=== PATIENT | female | born 1955 | race Caucasian/White ===

== ENCOUNTER 2022-08-11 15:30 | Inpatient (IN) ==
[2022-08-11] MEDS ORDERED: IOPAMIDOL 100 ML BOTTLE IV ONE (15:31)
[2022-08-11] MEDS ORDERED: 0.9 % SODIUM CHLORIDE 500 ML IV ONE ×3 (15:38→17:29)
--- NOTE | 2022-08-11 15:38 | Emergency Department Note ---
HPI General Chief complaint: Shortness of Breath/Dyspnea Stated complaint: SOB Time Seen by Provider: 08/11/22 15:37 Source: patient Mode of arrival: ambulatory Limitations: no limitations History of Present Illness HPI Narrative: Narrative: Patient is a 66-year-old female with a history of COPD who presents to the emergency department due to chest pain and shortness of breath. She describes the pain as pressure-like, in the center of her chest, and without palliative or provocative factors. She has not taken anything for the pain, but did use her albuterol inhaler and nebulized breathing treatments without any significant relief of her shortness of breath. She does endorse chills, runny nose, and sore throat. She denies any other symptoms at this time. Related Data Home Medications Medication Instructions Recorded Confirmed albuterol sulfate 90 mcg/actuation 2 puff INH Q4-6HP PRN Wheezing 12/25/15 08/11/22 aerosol inhaler (Ventolin HFA) alprazolam 0.5 mg tablet 0.5 mg PO BIDP PRN Anxiety 12/25/15 08/11/22 cyclobenzaprine 10 mg tablet 10 mg PO TIDP PRN Pain 12/25/15 08/11/22 montelukast 10 mg tablet 10 mg PO DAILY 12/25/15 08/11/22 (Singulair) albuterol sulfate 2.5 mg/3 mL 2.5 mg continuous nebulization 08/11/22 08/11/22 (0.083 %) solution for nebulization Q4-6HP PRN Wheezing benzonatate 100 mg capsule 100 mg PO TIDP PRN Congestion 08/11/22 08/11/22 fluticasone fur. 100 mcg-umeclid 1 inh inhalation QDAY 08/11/22 08/11/22 62.5 mcg-vilant 25 mcg inhalat.powder (Trelegy Ellipta) fluticasone furoate 200 1 inh inhalation QDAY 08/11/22 08/11/22 mcg/actuation blister powder for inhalation (Arnuity Ellipta) guaifenesin 1,200 mg tablet, 1,200 mg PO BID 08/11/22 08/11/22 extended release 12 hr (Mucinex) ipratropium bromide 0.02 % 0.5 mg continuous nebulization 08/11/22 08/11/22 solution for inhalation Q6-8HP PRN Wheezing levothyroxine 112 mcg tablet 112 mcg PO QDAY 08/11/22 08/11/22 roflumilast 500 mcg tablet 500 mcg PO QAM 08/11/22 08/11/22 (Daliresp) sertraline 100 mg tablet 100 mg PO QDAY 08/11/22 08/11/22 simvastatin 20 mg tablet 20 mg PO QDAY 08/11/22 08/11/22 tizanidine 2 mg tablet 2 mg PO Q8H PRN Spasms 08/11/22 08/11/22 triamcinolone acetonide 0.1 % 1 applic topical PRN PRN Allergic 08/11/22 08/11/22 topical cream Symptoms Previous Rx's Medication Instructions Recorded ipratropium bromide 0.02 % 2.5 ml inhalation Q6H PRN 08/13/22 solution for inhalation shortness of breath or wheezing #150 mL levalbuterol HCl 1.25 mg/3 mL 1.25 mg (3 mL) inhalation Q6H PRN 08/13/22 solution for nebulization (Xopenex) shortness of breath or wheezing #90 mL prednisone 10 mg tablet 40 mg PO QDAY #1 tab 08/13/22 benzonatate 200 mg capsule 200 mg PO TID PRN cough #20 caps 08/14/22 cefdinir 300 mg capsule 300 mg PO BID #5 caps 08/14/22 cefpodoxime 200 mg tablet 200 mg PO BID #5 tabs 08/15/22 Allergies Allergy/AdvReac Type Severity Reaction Status Date / Time aspirin Allergy Severe short of Verified 08/11/22 15:34 breath ibuprofen Allergy Severe short of Verified 08/11/22 15:34 breath Sulfa (Sulfonamide Allergy Severe short of Verified 08/11/22 15:34 Antibiotics) breath Review of Systems ROS ROS Narrative: Narrative: Constitutional: Reports chills; Denies fever or weakness Eyes: Denies eye pain or vision change ENT ED: Reports throat pain and rhinorrhea Cardiovascular: Reports chest pain; Denies dyspnea on exertion, orthopnea or edema Respiratory: Reports shortness of breath; Denies cough Gastrointestinal: Denies abdominal pain, nausea, vomiting, diarrhea, constipation, hematochezia or melena Musculoskeletal: Denies back pain or myalgia Integumentary: Denies rash or lesions Neurological: Denies headache, weakness, numbness or dizziness PFSH Narrative Patient History Narrative: Narrative: Medical/Surgical/Family History All Active Problems (Updated 08/19/22 @ 08:26 by Rashad Caceres MD) Diverticulitis (Acute) Urticaria (Acute) Pneumonia (Acute) Medical History (Updated 08/19/22 @ 08:26 by Rashad Caceres MD) Diverticulitis Urticaria Exam Narrative Narrative: Narrative: General Limitations: no limitations General appearance: Present alert and in no apparent distress; Absent anxious, appears intoxicated or sleepy Head Head: Present atraumatic and normocephalic Eye Eye: Present EOMI; Absent scleral icterus or nystagmus ENT ENT: Present mucous membranes moist and nasal congestion Neck Neck: Present full ROM and trachea midline Chest Chest: Present normal inspection and symmetric chest wall rise Respiratory Respiratory: Present normal lung sounds bilaterally; Absent respiratory distress, rales/crackles, wheezes, stridor or accessory muscle use Cardiovascular Cardiovascular: Present regular rate, normal rhythm and normal heart sounds Adbominal Abdominal: Present soft; Absent distention Extremities Extremities: Present normal inspection and full ROM; Absent tenderness, pedal edema or pretibial edema Back Back: Present normal inspection and full ROM; Absent tenderness Neurological Neurological: Present alert and oriented X3 Psychiatric Psychiatric: Present normal affect and normal mood Skin Skin: Present warm (WNL), dry and normal color Course Vital Signs Vital signs: Vital Signs Temperature 98.5 F 08/11/22 15:32 Pulse Rate 120 H 08/11/22 15:32 Respiratory Rate 26 H 08/11/22 15:32 Blood Pressure 106/69 08/11/22 15:32 Pulse Oximetry (%) 95 08/11/22 15:32 Oxygen Delivery Method Room Air 08/11/22 15:32 Temperature 98.4 F 08/14/22 14:29 Pulse Rate 112 H 08/14/22 14:29 Respiratory Rate 20 08/14/22 14:29 Blood Pressure 99/79 08/14/22 14:29 Pulse Oximetry (%) 94 08/14/22 14:29 Oxygen Delivery Method Room Air 08/14/22 14:29 MDM MDM Narrative Medical decision making narrative: Narrative: Patient is a 66-year-old female with a history of COPD who presents to the emergency department due to chest pain and shortness of breath. Differential diagnoses include pneumonia, COPD exacerbation, covid, influenza, other viral infection, and PE. CT PE demonstrates pneumonia. She has received antibiotics. She has received fluid without significant improvement in heart rate. She received duoneb treatments with some improvement in shortness of breath. Due to concern for sepsis secondary to pneumonia I have spoken to Dr. Asif about admission and he has agreed to see and evaluate patient for admission. Lab Data 08/12/22 05:34 08/13/22 05:44 Labs: Lab Results 08/11/22 08/11/22 08/11/22 Range/Units 15:48 15:48 15:48 WBC 7.4 (4.5-11.0) K/mcL RBC 3.75 (3.59-5.38) M/mcL Hgb 10.9 L (11.2-15.7) g/dL Hct 34.2 (34.1-44.9) % POC Hct (36-48) MCV 91.2 (80.0-100.0) fL MCH 29.1 (26.0-34.0) pg MCHC 31.9 (31.0-36.0) g/dL RDW 13.7 (11.5-14.5) % Plt Count 277 (140-440) K/mcL MPV 10.3 (8.8-12.5) fL Immature Gran % (Auto) 0.4 (0.0-0.5) % Neut % (Auto) 80.5 H (38.0-78.0) % Lymph % (Auto) 9.6 L (15.5-49.0) % [place] % (Auto) 8.5 (1.0-12.0) % Eos % (Auto) 0.5 (0.0-7.0) % Baso % (Auto) 0.5 (0.0-2.0) % Lymph # (Auto) 0.71 L (1.50-4.80) K/mcL [place] # (Auto) 0.63 (0.10-0.90) K/mcL Eos # (Auto) 0.04 (0.00-0.70) K/mcL Baso # (Auto) 0.04 (0.00-0.30) K/mcL Seg Neutrophils % (38-78) % Band Neutrophils % (0-10) % Lymphocytes % (15-49) % Monocytes % (Manual) (1-12) % Eosinophils % (Manual) (0-7) % Immature Gran # 0.03 (0.00-0.05) K/mcl Absolute Neutrophils 5.93 (1.80-8.00) K/mcL Platelet Estimate (Normal) RBC Morphology (Normal) D-Dimer 1.08 H (0.27-0.50) ug/mL POC VBG pH (7.32-7.42) POC VBG pCO2 at Temp (41-51) POC VBG pO2 (25-40) POC VBG HCO3 (24-28) POC VBG Total CO2 (25-29) POC Venous O2 Sat (40-70) POC VBG Base Excess (-2-2) VBG Lactic Acid (0.5-2) POC Sodium (133-145) POC Potassium (3.3-5.1) POC Chloride (96-108) POC Total CO2 (22-30) POC BUN (6-20) POC Creatinine (0.6-1.2) POC Glucose (70-105) POC WB Ioniz Calcium (1.16-1.32) C-Reactive Protein (0.03-0.80) mg/dL NT-Pro-B Natriuret Pep (<125.0) pg/mL Procalcitonin 0.07 (<0.10) ng/mL 08/11/22 08/11/22 08/11/22 Range/Units 15:48 15:48 15:48 WBC (4.5-11.0) K/mcL RBC (3.59-5.38) M/mcL Hgb (11.2-15.7) g/dL Hct (34.1-44.9) % POC Hct (36-48) MCV (80.0-100.0) fL MCH (26.0-34.0) pg MCHC (31.0-36.0) g/dL RDW (11.5-14.5) % Plt Count (140-440) K/mcL MPV (8.8-12.5) fL Immature Gran % (Auto) (0.0-0.5) % Neut % (Auto) (38.0-78.0) % Lymph % (Auto) (15.5-49.0) % [place] % (Auto) (1.0-12.0) % Eos % (Auto) (0.0-7.0) % Baso % (Auto) (0.0-2.0) % Lymph # (Auto) (1.50-4.80) K/mcL [place] # (Auto) (0.10-0.90) K/mcL Eos # (Auto) (0.00-0.70) K/mcL Baso # (Auto) (0.00-0.30) K/mcL Seg Neutrophils % 87 H (38-78) % Band Neutrophils % 2 (0-10) % Lymphocytes % 5 L (15-49) % Monocytes % (Manual) 5 (1-12) % Eosinophils % (Manual) 1 (0-7) % Immature Gran # (0.00-0.05) K/mcl Absolute Neutrophils (1.80-8.00) K/mcL Platelet Estimate Normal (Normal) RBC Morphology Normal (Normal) D-Dimer (0.27-0.50) ug/mL POC VBG pH (7.32-7.42) POC VBG pCO2 at Temp (41-51) POC VBG pO2 (25-40) POC VBG HCO3 (24-28) POC VBG Total CO2 (25-29) POC Venous O2 Sat (40-70) POC VBG Base Excess (-2-2) VBG Lactic Acid (0.5-2) POC Sodium (133-145) POC Potassium (3.3-5.1) POC Chloride (96-108) POC Total CO2 (22-30) POC BUN (6-20) POC Creatinine (0.6-1.2) POC Glucose (70-105) POC WB Ioniz Calcium (1.16-1.32) C-Reactive Protein 2.40 H (0.03-0.80) mg/dL NT-Pro-B Natriuret Pep 6314.0 H (<125.0) pg/mL Procalcitonin (<0.10) ng/mL 08/11/22 08/11/22 Range/Units 15:56 16:00 WBC (4.5-11.0) K/mcL RBC (3.59-5.38) M/mcL Hgb (11.2-15.7) g/dL Hct (34.1-44.9) % POC Hct 34.0 L (36-48) MCV (80.0-100.0) fL MCH (26.0-34.0) pg MCHC (31.0-36.0) g/dL RDW (11.5-14.5) % Plt Count (140-440) K/mcL MPV (8.8-12.5) fL Immature Gran % (Auto) (0.0-0.5) % Neut % (Auto) (38.0-78.0) % Lymph % (Auto) (15.5-49.0) % Carter % (Auto) (1.0-12.0) % Eos % (Auto) (0.0-7.0) % Baso % (Auto) (0.0-2.0) % Lymph # (Auto) (1.50-4.80) K/mcL [place] # (Auto) (0.10-0.90) K/mcL Eos # (Auto) (0.00-0.70) K/mcL Baso # (Auto) (0.00-0.30) K/mcL Seg Neutrophils % (38-78) % Band Neutrophils % (0-10) % Lymphocytes % (15-49) % Monocytes % (Manual) (1-12) % Eosinophils % (Manual) (0-7) % Immature Gran # (0.00-0.05) K/mcl Absolute Neutrophils (1.80-8.00) K/mcL Platelet Estimate (Normal) RBC Morphology (Normal) D-Dimer (0.27-0.50) ug/mL POC VBG pH 7.46 H (7.32-7.42) POC VBG pCO2 at Temp 27.5 L (41-51) POC VBG pO2 61 H (25-40) POC VBG HCO3 19.8 L (24-28) POC VBG Total CO2 21.0 L (25-29) POC Venous O2 Sat 93.0 H (40-70) POC VBG Base Excess -4.0 L (-2-2) VBG Lactic Acid 1.7 (0.5-2) POC Sodium 136 (133-145) POC Potassium 3.8 (3.3-5.1) POC Chloride 103 (96-108) POC Total CO2 21.0 L (22-30) POC BUN 6 (6-20) POC Creatinine 0.7 (0.6-1.2) POC Glucose 115 H (70-105) POC WB Ioniz Calcium 1.12 L (1.16-1.32) C-Reactive Protein (0.03-0.80) mg/dL NT-Pro-B Natriuret Pep (<125.0) pg/mL Procalcitonin (<0.10) ng/mL EKG Data EKG #1: EKG attestation: Yes I reviewed and interpreted this EKG. EKG results narrative: Sinus tachycardia with a rate of 115, left axis deviation, AR 157, QRS of 118, QTc of 475, T wave inversions in leads I and aVL, T wave flattening in leads V5 and V6, and absence of ST elevation or depression. Discharge Plan Patient/Caregiver Discharge Instructions Pt seen by HOUSE SUPERVISOR/PA only: No Clinical Impression: Pneumonia Patient Disposition: Xfer As Inpt ([facility]) Condition: Fair Discharge Date/Time: 08/11/22 21:18
[2022-08-11 16:03] LABS: POC Calcium, Ionized 1.12 (1.16-1.32); POC Creatinine 0.7 (0.6-1.2); POC Potassium 3.8 (3.3-5.1)
--- NOTE | 2022-08-11 16:28 | XRay Report ---
INDICATION: SOB TECHNIQUE: AP portable upright chest x-ray COMPARISON: Previous examinations dated 03/31/2020, 07/12/2014 FINDINGS: Lungs:Mild linear density at both lung bases most consistent with atelectasis. No parenchymal consolidation. No evidence for pneumonia Heart, vascular:Heart size appears enlarged. Cardiomegaly was not demonstrated previously. This appearance on present examination may be due to magnification and AP positioning. Vascularity is within normal limits. No evidence for congestive heart Mediastinum, lorenzo:No mediastinal widening. No hilar mass Pleura:No pleural fluid. No pleural-based mass or calcification Skeletal:Negative. IMPRESSION: 1. Bibasilar density consistent with atelectasis 2. No other abnormality Interpreted and Authenticated by: Ajith Bernal 08/11/22
[2022-08-11] MEDS ORDERED: IPRATROPIUM/ALBUTEROL 3 ML AMPUL.NEB NEB ONE (16:33)
[2022-08-11 16:49] LABS: Basophils # (Auto) 0.04 K/mcL (0.00-0.30); Basophils % (Auto) 0.5 % (0.0-2.0); Eosinophils # (Auto) 0.04 K/mcL (0.00-0.70); Eosinophils % (Auto) 0.5 % (0.0-7.0); Hematocrit 34.2 % (34.1-44.9); Hemoglobin 10.9 g/dL (11.2-15.7); Lymphocytes # (Auto) 0.71 K/mcL (1.50-4.80); Lymphocytes % (Auto) 9.6 % (15.5-49.0); Mean Cell Volume 91.2 fL (80.0-100.0); Mean Corpuscular HGB Conc 31.9 g/dL (31.0-36.0); Mean Platelet Volume 10.3 fL (8.8-12.5); Monocytes # (Auto) 0.63 K/mcL (0.10-0.90); Monocytes % (Auto) 8.5 % (1.0-12.0); Neutrophils % (Auto) 80.5 % (38.0-78.0); Platelet Count 277 K/mcL (140-440); RBC 3.75 M/mcL (3.59-5.38); Red Cell Distribution Width 13.7 % (11.5-14.5); WBC 7.4 K/mcL (4.5-11.0)
[2022-08-11] MEDS ORDERED: PIPERACILLIN SODIUM/TAZOBACTAM 3.375 GM in DEXTROSE 5% IN WATER 50 ML IV ONE (17:27)
[2022-08-11] MEDS ORDERED: ACETAMINOPHEN 325 MG TABLET PO ONE (17:27)
[2022-08-11] MEDS ORDERED: VANCOMYCIN 1,000 MG in 0.9 % SODIUM CHLORIDE 250 ML IV ONE (17:27)
[2022-08-11] MEDS ORDERED: ALBUTEROL SULFATE 5 MG/ML NEB SOLUTION BOTTLE NEB ONE (17:34)
[2022-08-11] MEDS ORDERED: ALBUTEROL SULFATE 2.5 MG/3 ML NEBULIZER NEB ONE (17:36)
--- NOTE | 2022-08-11 18:07 | Cat Scan Report ---
INDICATION: Chest pain, SOB, tachycardia, elevated D dimer COMPARISON: Previous chest x-ray dated 08/11/2022 TECHNIQUE: Axial images obtained through the chest. 70ml Isovue 370 injected intravenously, and scanning was performed during pulmonary arterial phase. Sagittally and coronally reformatted images were obtained. MIP reformatted images. FINDINGS: Lungs:Suboptimal evaluation due to inability to suspend respiration. There are areas of groundglass infiltrate in the left upper lobe. Findings are consistent with pneumonia. 3-[address] follow-up recommended. There is centrilobular emphysema consistent with smoking history. There is also bronchial wall thickening consistent with chronic bronchitis. Mediastinum, vascular:Main pulmonary artery, right pulmonary artery, left pulmonary artery are negative. No intraluminal filling defects. No lobar, segmental, or subsegmental emboli. Thoracic aorta is negative. No aneurysmal dilatation No pathologic mediastinal adenopathy. There is mild hilar adenopathy. This is nonspecific. Heart:There is mild cardiomegaly. There is no reflux of contrast material into the inferior vena cava or hepatic veins. No evidence for right heart strain Pleura:No significant pleural effusion. No pleural mass or calcification Axilla, supraclavicular regions, chest wall:No pathologic axillary or supraclavicular adenopathy. Musculoskeletal:Negative thoracic spine. No compression fracture. No lytic lesion. No rib or sternal lesions Upper Abdomen:Negative IMPRESSION: 1. Negative pulmonary CTA 2. Centrilobular emphysema. Bronchial wall thickening consistent with chronic bronchitis 3. Groundglass infiltrates in the left upper lobe consistent with pneumonia. 3-[address] follow-up recommended 4. Cardiomegaly. The exam was performed using radiation dose optimization techniques including, but not limited to, automated exposure control, adjustment of the mA and/or kV according to patient size and use of iterative reconstruction technique. Interpreted and Authenticated by: Ajith Bernal 08/11/22
[2022-08-11] MEDS ORDERED: methylPREDNISolone SOD SUCC 125 MG/2 ML VIAL IV ONE (19:11)
--- NOTE | 2022-08-11 19:15 | Internal Med History&Physical ---
HPI History of Present Illness Patient information: Note initiated : 08/11/22 at 7:08 pm Service Date, if different from initiated Date: [] Patient: Venessa Hercules a 66 y/o F admitted on for Shortness of breath. Chief Complaint: [] History of present illness: Ms. Hercules is a 66 year old F Presents today with shortness of breath and productive cough. And feeling wheezy. Patient states about a month or so ago she was little more short of breath and saw her primary care nurse practitioner Dr. Beauchamp. She started to feel little better but then when she went down to [place] to visit family she seemed to be getting worse again. And then on the way back she continued to worsen. She was around a sister who had a cold as well. It was so severe today that she came into the hospital. Primarily shortness of breath is what brought her in. She got back from [place] yesterday. As stated before she does feel really wheezy. She did have some nausea. She does have a cough productive of thick white sputum with some yellowish hue to it. In the ED she was febrile tachypneic and tachycardic. Lactate was okay. CT of the chest showed left upper lobe pneumonia. Bronchitis. No PE. Patient was given DuoNeb treatments and eventually can continue his heart treatment with some improvement during the course but then she continues to feel short of breath. Patient is started on antibiotics. Patient has not had the flu or the COVID-vaccine. Review of Systems: Pertinent positives as above. Denies headache//chills//vomiting/chest or abdominal pain/diarrhea. Remaining 10 point review of system reviewed negative PHYSICAL EXAM General: Alert, Awake, No acute Distress Eyes/N/T: EOMI, no scleral icterus, PERRL, dry MM Head/Neck: neck supple, full ROM, normocephalic atraumatic CV: Tachycardic, No murmurs, normal s1/s2 Pulm: Wheezing b/l, long expiratory phase, mild respiratory distress Abd: soft, nontender, +BS x4 Ext: no clubbing/cyanosis/edema, nontender Neuro: Alert, no focal deficits, moves all extremities, CN 2-12 grossly intact, sensations intact b/l upper/lower Psychiatric: Skin: warm/dry, normal color PFSH PFSH All Active Problems (Updated 09/26/16 @ 14:29 by [employer]) Diverticulitis (Acute) Urticaria (Acute) Medical History (Updated 09/26/16 @ 14:29 by [employer]) Diverticulitis Urticaria MEDS/ALLERGIES Home Medications and Allergies Home Medications Medication Instructions Recorded Confirmed Type albuterol sulfate 90 mcg/actuation 2 puff INH Q4-6HP PRN Wheezing 12/25/15 12/25/15 History aerosol inhaler (Ventolin HFA) alprazolam 0.5 mg tablet 0.5 mg PO BIDP PRN Anxiety 12/25/15 12/25/15 History budesonide 180 mcg/actuation 180 mcg IH 12/25/15 History breath activated powder inhaler (Pulmicort Flexhaler) ciprofloxacin HCl 500 mg tablet 500 mg PO BID ##20 12/25/15 Rx cyclobenzaprine 10 mg tablet 10 mg PO TIDP PRN Pain 12/25/15 12/25/15 History fluticasone 500 mcg-salmeterol 50 1 puff INH BID 12/25/15 12/25/15 History mcg/dose blistr powdr for inhalation (Advair Diskus) levothyroxine 125 mcg tablet 125 mcg PO DAILY 12/25/15 12/25/15 History metronidazole 500 mg tablet 500 mg PO TID ##30 12/25/15 Rx (Flagyl) montelukast 10 mg tablet 10 mg PO DAILY 12/25/15 12/25/15 History (Singulair) sertraline 25 mg tablet 25 mg PO DAILY 12/25/15 12/25/15 History Allergies Allergy/AdvReac Type Severity Reaction Status Date / Time aspirin Allergy Severe short of Verified 08/11/22 15:34 breath ibuprofen Allergy Severe short of Verified 08/11/22 15:34 breath Sulfa (Sulfonamide Allergy Severe short of Verified 08/11/22 15:34 Antibiotics) breath EXAM Constitutional Vitals: Temp Pulse Resp BP Pulse Ox O2 Del Method 100.9 F H 114 H 16 119/75 99 Room Air 08/11/22 17:45 08/11/22 18:15 08/11/22 18:15 08/11/22 17:34 08/11/22 18:15 08/11/22 15:32 DATA Data Completed and Pending Labs: Labs from last 24 hours 08/11/22 08/11/22 08/11/22 16:00 15:56 15:48 WBC RBC Hgb Hct POC Hct 34.0 L MCV MCH MCHC RDW Plt Count MPV Immature Gran % (Auto) Neut % (Auto) Lymph % (Auto) [place] % (Auto) Eos % (Auto) Baso % (Auto) Lymph # (Auto) [place] # (Auto) Eos # (Auto) Baso # (Auto) Immature Gran # Absolute Neutrophils D-Dimer POC VBG pH 7.46 H POC VBG pCO2 at Temp 27.5 L POC VBG pO2 61 H POC VBG HCO3 19.8 L POC VBG Total CO2 21.0 L POC Venous O2 Sat 93.0 H POC VBG Base Excess -4.0 L VBG Lactic Acid 1.7 POC Sodium 136 POC Potassium 3.8 POC Chloride 103 POC Total CO2 21.0 L POC BUN 6 POC Creatinine 0.7 POC Glucose 115 H POC WB Ioniz Calcium 1.12 L NT-Pro-B Natriuret Pep 6314.0 H Procalcitonin 08/11/22 08/11/22 08/11/22 15:48 15:48 15:48 WBC 7.4 RBC 3.75 Hgb 10.9 L Hct 34.2 POC Hct MCV 91.2 MCH 29.1 MCHC 31.9 RDW 13.7 Plt Count 277 MPV 10.3 Immature Gran % (Auto) 0.4 Neut % (Auto) 80.5 H Lymph % (Auto) 9.6 L [place] % (Auto) 8.5 Eos % (Auto) 0.5 Baso % (Auto) 0.5 Lymph # (Auto) 0.71 L [place] # (Auto) 0.63 Eos # (Auto) 0.04 Baso # (Auto) 0.04 Immature Gran # 0.03 Absolute Neutrophils 5.93 D-Dimer 1.08 H POC VBG pH POC VBG pCO2 at Temp POC VBG pO2 POC VBG HCO3 POC VBG Total CO2 POC Venous O2 Sat POC VBG Base Excess VBG Lactic Acid POC Sodium POC Potassium POC Chloride POC Total CO2 POC BUN POC Creatinine POC Glucose POC WB Ioniz Calcium NT-Pro-B Natriuret Pep Procalcitonin 0.07 A/P Narrative A/P Narrative: A: *AECOPD(not on home O2): *PNA: viral vs bacterial *Sepsis: -febrile/tachypnea/tachycardia *Depression/anxiety: Continue home medications *Hypothyroidism: * P: -Corticosteroids (wean) -manoj/prn Nebs, RT, budesonide -IS/Acapella -monitor o2, prn oxygen therapy -abx, pending BC/SC -rvp/covid pending -crp - -Home medication reconciliation -PT/OT -ppx: Lovenox Time Spent With Patient Time: Total time spent is greater than 50% in coordination of care (as documented) at patient's floor/unit and/or counseling patient: Initial: Total time with patient: 55 - 74 minutes
[2022-08-11] MEDS ORDERED: SENNOSIDES 1 TABLET PO PRN (19:16)
[2022-08-11] MEDS ORDERED: POLYETHYLENE GLYCOL 3350 17 GM PACKET PO PRN (19:16)
[2022-08-11] MEDS ORDERED: ONDANSETRON 4 MG/2 ML VIAL IV PRN (19:16)
[2022-08-11] MEDS ORDERED: MAGNESIUM SULFATE 2 GM/50 ML BAG IV PRN (19:16)
[2022-08-11] MEDS ORDERED: POTASSIUM CHLORIDE 40 MEQ in DEXTROSE 5% IN WATER 500 ML IV PRN (19:16)
[2022-08-11] MEDS ORDERED: POTASSIUM CHLORIDE 20 MEQ TABLET PO PRN ×2 (19:16)
[2022-08-11] MEDS ORDERED: cefTRIAXone 1 GM in DEXTROSE 5% IN WATER 50 ML IV SCH (19:30)
[2022-08-11] MEDS ORDERED: AZITHROMYCIN 500 MG in DEXTROSE 5% IN WATER 250 ML IV SCH (21:00)
[2022-08-11] MEDS: methylPREDNISolone SOD SUCC 125 MG/2 ML VIAL IV SCH (21:24)
[2022-08-11 21:25] LABS: Band Neutrophils % 2 % (0-10); Eosinophils % (Manual) 1 % (0-7); Lymphocytes % 5 % (15-49); Monocytes % (Manual) 5 % (1-12); Platelet Estimate NORMAL (Normal); RBC Morphology NORMAL (Normal); Segmented Neutrophils % 87 % (38-78)
[2022-08-11] MEDS: cefTRIAXone 1 GM VIAL IV SCH (21:45)
[2022-08-11] MEDS: BUDESONIDE 0.5 MG/2 ML AMPUL.NEB NEB SCH (21:54)
[2022-08-11] MEDS: 0.9 % SODIUM CHLORIDE 10 ML SYRINGE IV SCH (22:10)
[2022-08-11] MEDS: DOCUSATE SODIUM 100 MG CAPSULE PO SCH ×2 (22:22→22:25)
[2022-08-12] MEDS: IPRATROPIUM/ALBUTEROL 3 ML AMPUL.NEB NEB SCH ×4 (00:39→18:01)
[2022-08-12] MEDS: ACETAMINOPHEN 325 MG TABLET PO PRN ×2 (04:04→09:30)
[2022-08-12] MEDS: IPRATROPIUM/ALBUTEROL 3 ML AMPUL.NEB NEB PRN ×2 (04:05→22:31)
[2022-08-12] MEDS: methylPREDNISolone SOD SUCC 125 MG/2 ML VIAL IV SCH ×3 (05:43→22:19)
[2022-08-12] MEDS: 0.9 % SODIUM CHLORIDE 10 ML SYRINGE IV SCH ×3 (05:44→22:19)
[2022-08-12 06:59] LABS: Basophils # (Auto) 0.01 K/mcL (0.00-0.30); Basophils % (Auto) 0.1 % (0.0-2.0); Eosinophils # (Auto) 0 K/mcL (0.00-0.70); Eosinophils % (Auto) 0 % (0.0-7.0); Hematocrit 33.5 % (34.1-44.9); Hemoglobin 10.3 g/dL (11.2-15.7); Lymphocytes # (Auto) 0.54 K/mcL (1.50-4.80); Lymphocytes % (Auto) 7.5 % (15.5-49.0); Mean Cell Volume 95.4 fL (80.0-100.0); Mean Corpuscular HGB Conc 30.7 g/dL (31.0-36.0); Mean Platelet Volume 10.5 fL (8.8-12.5); Monocytes # (Auto) 0.26 K/mcL (0.10-0.90); Monocytes % (Auto) 3.6 % (1.0-12.0); Neutrophils % (Auto) 88.1 % (38.0-78.0); Platelet Count 247 K/mcL (140-440); RBC 3.51 M/mcL (3.59-5.38); Red Cell Distribution Width 13.9 % (11.5-14.5); WBC 7.2 K/mcL (4.5-11.0)
[2022-08-12] MEDS ORDERED: ALPRAZolam 0.5 MG TABLET PO PRN (07:38)
--- NOTE | 2022-08-12 07:40 | Internal Med Progress Note ---
SUBJECTIVE Subjective Patient information: Note initiated : 08/12/22 at 7:34 am Service Date, if different from initiated Date: [] Patient: Venessa Hercules a 66 y/o F admitted on 08/11/22 for Shortness of breath. Chief Complaint: [] Interval history: History of present illness: Ms. Hercules is a 66 year old F Presents today with shortness of breath and productive cough. And feeling wheezy. Patient states about a month or so ago she was little more short of breath and saw her advice nurse Dr. Beauchamp. She started to feel little better but then when she went down to [place] to visit family she seemed to be getting worse again. And then on the way back she continued to worsen. She was around a sister who had a cold as well. It was so severe today that she came into the hospital. Primarily shortness of breath is what brought her in. She got back from [place] yesterday. As stated before she does feel really wheezy. She did have some nausea. She does have a cough productive of thick white sputum with some yellowish hue to it. In the ED she was febrile tachypneic and tachycardic. Lactate was okay. CT of the chest showed left upper lobe pneumonia. Bronchitis. No PE. Patient was given DuoNeb treatments and eventually can continue his heart treatment with some improvement during the course but then she continues to feel short of breath. Patient is started on antibiotics. Patient has not had the flu or the COVID-vaccine. 4/3 Feeling a little better. Still quite short of breath with any activity. Coughing. Headache. Review of Systems: Pertinent positives as above. Denies fever/chills/nausea/vomiting/chest or abdominal pain/diarrhea. PHYSICAL EXAM General: Alert, Awake, No acute Distress Eyes/N/T: EOMI, no scleral icterus, Head/Neck: neck supple, full ROM, CV: RRR, No murmurs, Pulm: Wheezing b/l, long expiratory phase, no respiratory distress Abd: soft, nontender, +BS x4 Ext: no clubbing/cyanosis/edema, nontender Neuro: Alert, no focal deficits, moves all extremities, sensations intact b/l upper/lower Psychiatric: Skin: warm/dry, normal color Constitutional Vitals: Vital Signs Temp Pulse Resp BP Pulse Ox O2 Del Method 99.0 F 102 H 22 97/74 91 Room Air 08/12/22 03:13 08/12/22 03:13 08/12/22 03:13 08/12/22 03:13 08/12/22 03:13 08/12/22 03:13 Period Temp Pulse Resp BP Sys/Ledesma Pulse Ox O2 Del Method O2 Flow Rate Last 24 Hr 98.1 F-100.9 F 93-122 15-31 89-119/62-85 91-100 Room Air-Room Air Intake and Output 08/11/22 08/12/22 08/12/22 19:59 03:59 11:59 Intake Total 1800 1000 Output Total 600 Balance 1800 400 Weight 65.771 kg 73.482 kg Intake & Output: Intake & Output 08/11/22 08/12/22 08/12/22 19:59 03:59 11:59 Intake Total 1800 1000 Output Total 600 Balance 1800 400 Weight 65.771 kg 73.482 kg Intake: IV 1800 250 Sodium [place] 0.9% 500 ml @ 1500 Wide Open IV BOLUS ONE Rx#: [id number] Zithromax 500 mg In Dextrose 5% 250 in Water 250 ml @ 250 mls/hr IV Q24H [facility] Rx#:[id number] Zosyn 3.375 gm In Dextrose 5% 50 in Water 50 ml @ 100 mls/hr IV ONCE ONE Rx#:[id number] Vancomycin 1,000 mg In Sodium 250 Ch[place] 0.9% 250 ml @ 250 mls/ hr IV ONCE ONE Rx#:[id number] Oral 750 Output: Void Amount 600 Other: Meal [place], crackers, cheese stick Percent of Meal Consumed 100% Feeding Ability Independent Urine Appearance Clear Urine Color Yellow Urine Odor Normal # Voids 2 # Bowel Movements 1 OBJ DATA Labs 08/12/22 05:34 08/12/22 05:34 Labs: Abnormal Lab Results 08/12/22 08/11/22 08/11/22 05:34 16:00 15:56 RBC 3.51 L Hgb 10.3 L Hct 33.5 L POC Hct 34.0 L MCHC 30.7 L Immature Gran % (Auto) 0.7 H Neut % (Auto) 88.1 H Lymph % (Auto) 7.5 L Lymph # (Auto) 0.54 L Seg Neutrophils % Lymphocytes % D-Dimer POC VBG pH 7.46 H POC VBG pCO2 at Temp 27.5 L POC VBG pO2 61 H POC VBG HCO3 19.8 L POC VBG Total CO2 21.0 L POC Venous O2 Sat 93.0 H POC VBG Base Excess -4.0 L POC Total CO2 21.0 L POC Glucose 115 H POC WB Ioniz Calcium 1.12 L C-Reactive Protein NT-Pro-B Natriuret Pep 08/11/22 08/11/22 08/11/22 15:48 15:48 15:48 RBC Hgb Hct POC Hct MCHC Immature Gran % (Auto) Neut % (Auto) Lymph % (Auto) Lymph # (Auto) Seg Neutrophils % 87 H Lymphocytes % 5 L D-Dimer POC VBG pH POC VBG pCO2 at Temp POC VBG pO2 POC VBG HCO3 POC VBG Total CO2 POC Venous O2 Sat POC VBG Base Excess POC Total CO2 POC Glucose POC WB Ioniz Calcium C-Reactive Protein 2.40 H NT-Pro-B Natriuret Pep 6314.0 H 08/11/22 08/11/22 15:48 15:48 RBC Hgb 10.9 L Hct POC Hct MCHC Immature Gran % (Auto) Neut % (Auto) 80.5 H Lymph % (Auto) 9.6 L Lymph # (Auto) 0.71 L Seg Neutrophils % Lymphocytes % D-Dimer 1.08 H POC VBG pH POC VBG pCO2 at Temp POC VBG pO2 POC VBG HCO3 POC VBG Total CO2 POC Venous O2 Sat POC VBG Base Excess POC Total CO2 POC Glucose POC WB Ioniz Calcium C-Reactive Protein NT-Pro-B Natriuret Pep Meds: Medications Acetaminophen (Acetaminophen 325 Mg Tablet) 650 mg PO Q6HP PRN; Protocol PRN Reason: Per Pain Protocol/Fever > 101 Last Admin: 08/12/22 04:04 Dose: 650 mg Albuterol/Ipratropium (Ipratropium/Albuterol 3 Ml Ampul.Neb) 3 ml NEB Q6HRT [facility]J Last Admin: 08/12/22 00:39 Dose: 3 ml Albuterol/Ipratropium (Ipratropium/Albuterol 3 Ml Ampul.Neb) 3 ml NEB Q4HP PRN PRN Reason: Shortness Of Breath Last Admin: 08/12/22 04:05 Dose: 3 ml Budesonide (Budesonide 0.5 Mg/2 Ml Ampul.Neb) 0.5 mg NEB Q12 COUNT INCLUDES THE [facility] Last Admin: 08/11/22 21:54 Dose: Not Given Ceftriaxone Sodium (Ceftriaxone 1 Gm Vial) 1 gm IV Q24H COUNT INCLUDES THE [facility] Last Admin: 08/11/22 21:45 Dose: 1 gm Docusate Sodium (Docusate Sodium 100 Mg Capsule) 100 mg PO BID COUNT INCLUDES THE [facility] Last Admin: 08/11/22 22:25 Dose: Not Given Enoxaparin Sodium (Enoxaparin 40 Mg/0.4 Ml Syringe) 40 mg SQ DAILY COUNT INCLUDES THE [facility] Potassium [place] 40 meq/ (Dextrose) 520 mls @ 130 mls/hr IV UD PRN PRN Reason: Potassium < 3 Magnesium Sulfate (Magnesium Sulfate) 2 gm in 50 mls @ 50 mls/hr IV UD PRN PRN Reason: Magnesium </= 1.6 Azithromycin 500 mg/ Dextrose 250 mls @ 250 mls/hr IV Q24H COUNT INCLUDES THE [facility]; Protocol Stop: 08/13/22 10:59 Methylprednisolone Sodium Succinate (Methylprednisolone Sod Succ 125 Mg/2 Ml Vial) 62.5 mg IV Q8 COUNT INCLUDES THE [facility] Last Admin: 08/12/22 05:43 Dose: 62.5 mg Ondansetron HCl (Ondansetron 4 Mg/2 Ml Vial) 4 mg IV Q4HP PRN PRN Reason: Nausea And Vomiting Polyethylene Glycol (Polyethylene Glycol 3350 17 Gm Packet) 17 gm PO DAILYP PRN PRN Reason: Constipation Potassium [place] (Potassium [place] 20 Meq Tablet) 40 meq PO UD PRN PRN Reason: Potssium is 3-3.5 Potassium [place] (Potassium [place] 20 Meq Tablet) 40 meq PO UD PRN PRN Reason: Potassium < 3 Senna (Sennosides 1 Tablet) 2 tab PO DAILYP PRN PRN Reason: Constipation Sodium [place] (0.9 % Sodium [place] 10 Ml Syringe) 10 ml IV Q8 COUNT INCLUDES THE [facility] Last Admin: 08/12/22 05:44 Dose: 10 ml A/P Narrative A/P Narrative: A: *AECOPD(not on home O2): *PNA: suspect viral from parainfluenza virus vs bacterial -covid/flu neg *Sepsis: -febrile/tachypnea/tachycardia slowly improving *Metabolic acidosis: *Depression/anxiety: Continue home medications *Hypothyroidism: *Anemia, likely chronic: monitor P: -Corticosteroids (wean) -manoj/prn Nebs, RT, budesonide -IS/Acapella -monitor o2, prn oxygen therapy -abx, pending BC/SC -Follow-up acid-base status, renal fxn -crp -f/u CT 3-6mos for BARRON infiltrates -PT/OT -ppx: Lovenox Time Spent With Patient Time: Total time spent is greater than 50% in coordination of care (as documented) at patient's floor/unit and/or counseling patient: Subsequent: Total time with patient: 35 - 49 minutes QUALITY Stroke Symptom Onset Unknown: No VTE Deep Vein Thrombosis/Pulmonary Embolism Present on Admission: No
[2022-08-12] MEDS: BUDESONIDE 0.5 MG/2 ML AMPUL.NEB NEB SCH ×2 (07:49→18:01)
[2022-08-12] MEDS ORDERED: tiZANidine 4 MG TABLET PO PRN (07:51)
[2022-08-12 08:13] LABS: ALT/SGPT 37 U/L (<40); AST/SGOT 22 U/L (<32); Albumin 3.5 gm/dL (3.2-5.2); Albumin/Globulin Ratio 1.6 (1.0-2.3); Alkaline Phosphatase 88 U/L (39-117); Bilirubin,Direct < 0.2 mg/dL (0-0.3); Bilirubin,Total 0.2 mg/dL (0.1-1.0); Blood Urea Nitrogen 9 mg/dL (8-23); Calcium 8.7 mg/dL (8.6-10.4); Carbon Dioxide 18 mmol/L (22-30); Chloride 103 mmol/L (96-108); Globulin 2.2 gm/dL (2.2-3.7); Glomerular Filtration Rate 96; Glucose 149 mg/dL (70-105); Lactate Dehydrogenase 201 U/L (135-225); Triglycerides 61 mg/dL (<150); Uric Acid 5.7 mg/dL (2.5-8.0)
[2022-08-12] MEDS: SERTRALINE 100 MG TABLET PO SCH (08:25)
[2022-08-12] MEDS: BENZONATATE 100 MG CAPSULE PO PRN (08:25)
[2022-08-12] MEDS: LEVOTHYROXINE SODIUM 112 MCG TABLET PO SCH (08:25)
[2022-08-12] MEDS: DOCUSATE SODIUM 100 MG CAPSULE PO SCH ×3 (08:26→22:20)
[2022-08-12] MEDS: cefTRIAXone 1 GM VIAL IV SCH (08:26)
[2022-08-12] MEDS: ENOXAPARIN 40 MG/0.4 ML SYRINGE SQ SCH (08:26)
--- NOTE | 2022-08-12 09:29 | EKG ---
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 Measurements Intervals [place] Rate: 115 P: 74 WA: 157 QRS: -39 QRSD: 118 T: 124 QT: 344 QTc: 475 Interpretive Statements Sinus tachycardia Incomplete left bundle branch block Electronically Signed On 08-12-2022 9:29:18 PDT by Ajith Saleh M.D. /store/[email or web address]/[id number]
[2022-08-12] MEDS: AZITHROMYCIN 500 MG in DEXTROSE 5% IN WATER 250 ML IV SCH (09:31)
[2022-08-12] MEDS: SODIUM BICARBONATE 650 MG TABLET PO SCH ×2 (09:37→20:38)
[2022-08-12] MEDS: SIMVASTATIN 20 MG TABLET PO SCH (20:38)
[2022-08-12] MEDS: MONTELUKAST 10 MG TABLET PO SCH (20:38)
[2022-08-12] MEDS: CYCLOBENZAPRINE 10 MG TABLET PO PRN (22:18)
[2022-08-13] MEDS: IPRATROPIUM/ALBUTEROL 3 ML AMPUL.NEB NEB SCH ×4 (00:34→18:21)
[2022-08-13] MEDS: BENZONATATE 100 MG CAPSULE PO PRN ×4 (01:12→21:22)
[2022-08-13] MEDS: ACETAMINOPHEN 325 MG TABLET PO PRN ×3 (01:12→21:21)
[2022-08-13] MEDS: methylPREDNISolone SOD SUCC 125 MG/2 ML VIAL IV SCH (05:20)
[2022-08-13] MEDS: 0.9 % SODIUM CHLORIDE 10 ML SYRINGE IV SCH ×3 (05:21→21:21)
--- NOTE | 2022-08-13 07:45 | Internal Med Progress Note ---
SUBJECTIVE Subjective Patient information: Note initiated : 08/13/22 at 7:43 am Service Date, if different from initiated Date: [] Patient: Venessa Hercules a 66 y/o F admitted on 08/11/22 for Shortness of breath. Chief Complaint: [] Interval history: History of present illness: Ms. Hercules is a 66 year old F Presents today with shortness of breath and productive cough. And feeling wheezy. Patient states about a month or so ago she was little more short of breath and saw her drug abuse worker Dr. Beauchamp. She started to feel little better but then when she went down to [place] to visit family she seemed to be getting worse again. And then on the way back she continued to worsen. She was around a sister who had a cold as well. It was so severe today that she came into the hospital. Primarily shortness of breath is what brought her in. She got back from [place] yesterday. As stated before she does feel really wheezy. She did have some nausea. She does have a cough productive of thick white sputum with some yellowish hue to it. In the ED she was febrile tachypneic and tachycardic. Lactate was okay. CT of the chest showed left upper lobe pneumonia. Bronchitis. No PE. Patient was given DuoNeb treatments and eventually can continue his heart treatment with some improvement during the course but then she continues to feel short of breath. Patient is started on antibiotics. Patient has not had the flu or the COVID-vaccine. 4/3 Feeling a little better. Still quite short of breath with any activity. Coughing. Headache. 4/4 Still quite symptomatic with dyspnea. Maintaining oxygenation well. Has productive cough that hurts her chest when she coughs. Metabolic acidosis a little better but still present. CRP mildly improved. Review of Systems: Pertinent positives as above. Denies fever/chills/nausea/vomiting/chest or abdominal pain/diarrhea. PHYSICAL EXAM General: Alert, Awake, No acute Distress Eyes/N/T: EOMI, no scleral icterus, Head/Neck: neck supple, full ROM, CV: RRR, No murmurs, Pulm: mild Wheezing b/l improved, long expiratory phase, no respiratory distress Abd: soft, nontender, +BS x4 Ext: no clubbing/cyanosis/edema, nontender Neuro: Alert, no focal deficits, moves all extremities, sensations intact b/l upper/lower Psychiatric: Skin: warm/dry, normal color Constitutional Vitals: Vital Signs Temp Pulse Resp BP Pulse Ox O2 Del Method 97.7 F 96 H 22 97/65 92 Room Air 08/13/22 03:46 08/13/22 03:46 08/13/22 03:46 08/13/22 03:46 08/13/22 03:46 08/13/22 03:46 Period Temp Pulse Resp BP Sys/Ledesma Pulse Ox O2 Del Method O2 Flow Rate Last 24 Hr 97.3 F-98.2 F 87-109 16-24 96-107/65-79 92-96 Room Air-Room Air Intake and Output 08/12/22 08/13/22 08/13/22 19:59 03:59 11:59 Intake Total 909 800 Output Total 0 800 Balance 909 0 Weight 74.797 kg Intake & Output: Intake & Output 08/12/22 08/13/22 08/13/22 19:59 03:59 11:59 Intake Total 909 800 Output Total 0 800 Balance 909 0 Weight 74.797 kg Intake: IV 109 Zithromax 500 mg In Dextrose 5% 109 in Water 250 ml @ 250 mls/hr IV Q24H [facility] Rx#:[id number] Oral 800 800 Output: Void Amount 800 # of times incontinent of urine 0 Other: Meal Dinner Percent of Meal Consumed 10 Feeding Ability Independent Urine Appearance Clear Urine Color Yellow # Voids 2 OBJ DATA Labs 08/12/22 05:34 08/13/22 05:44 Labs: Abnormal Lab Results 08/13/22 08/12/22 08/12/22 05:44 05:34 05:34 RBC 3.51 L Hgb 10.3 L Hct 33.5 L POC Hct MCHC 30.7 L Immature Gran % (Auto) 0.7 H Neut % (Auto) 88.1 H Lymph % (Auto) 7.5 L Lymph # (Auto) 0.54 L Seg Neutrophils % Lymphocytes % D-Dimer POC VBG pH POC VBG pCO2 at Temp POC VBG pO2 POC VBG HCO3 POC VBG Total CO2 POC Venous O2 Sat POC VBG Base Excess Carbon Dioxide 18 L POC Total CO2 Glucose 149 H POC Glucose POC WB Ioniz Calcium GGT 61 H C-Reactive Protein 1.80 H NT-Pro-B Natriuret Pep Total Protein 5.7 L 08/11/22 08/11/22 08/11/22 16:00 15:56 15:48 RBC Hgb Hct POC Hct 34.0 L MCHC Immature Gran % (Auto) Neut % (Auto) Lymph % (Auto) Lymph # (Auto) Seg Neutrophils % 87 H Lymphocytes % 5 L D-Dimer POC VBG pH 7.46 H POC VBG pCO2 at Temp 27.5 L POC VBG pO2 61 H POC VBG HCO3 19.8 L POC VBG Total CO2 21.0 L POC Venous O2 Sat 93.0 H POC VBG Base Excess -4.0 L Carbon Dioxide POC Total CO2 21.0 L Glucose POC Glucose 115 H POC WB Ioniz Calcium 1.12 L GGT C-Reactive Protein NT-Pro-B Natriuret Pep Total Protein 08/11/22 08/11/22 08/11/22 15:48 15:48 15:48 RBC Hgb Hct POC Hct MCHC Immature Gran % (Auto) Neut % (Auto) Lymph % (Auto) Lymph # (Auto) Seg Neutrophils % Lymphocytes % D-Dimer 1.08 H POC VBG pH POC VBG pCO2 at Temp POC VBG pO2 POC VBG HCO3 POC VBG Total CO2 POC Venous O2 Sat POC VBG Base Excess Carbon Dioxide POC Total CO2 Glucose POC Glucose POC WB Ioniz Calcium GGT C-Reactive Protein 2.40 H NT-Pro-B Natriuret Pep 6314.0 H Total Protein 08/11/22 15:48 RBC Hgb 10.9 L Hct POC Hct MCHC Immature Gran % (Auto) Neut % (Auto) 80.5 H Lymph % (Auto) 9.6 L Lymph # (Auto) 0.71 L Seg Neutrophils % Lymphocytes % D-Dimer POC VBG pH POC VBG pCO2 at Temp POC VBG pO2 POC VBG HCO3 POC VBG Total CO2 POC Venous O2 Sat POC VBG Base Excess Carbon Dioxide POC Total CO2 Glucose POC Glucose POC WB Ioniz Calcium GGT C-Reactive Protein NT-Pro-B Natriuret Pep Total Protein Meds: Medications Acetaminophen (Acetaminophen 325 Mg Tablet) 650 mg PO Q6HP PRN; Protocol PRN Reason: Per Pain Protocol/Fever > 101 Last Admin: 08/13/22 01:12 Dose: 650 mg Albuterol/Ipratropium (Ipratropium/Albuterol 3 Ml Ampul.Neb) 3 ml NEB Q6HRT [facility] Last Admin: 08/13/22 00:34 Dose: 3 ml Albuterol/Ipratropium (Ipratropium/Albuterol 3 Ml Ampul.Neb) 3 ml NEB Q4HP PRN PRN Reason: Shortness Of Breath Last Admin: 08/12/22 22:31 Dose: 3 ml Alprazolam (Alprazolam 0.5 Mg Tablet) 0.5 mg PO BIDP PRN PRN Reason: Anxiety Last Admin: 08/12/22 22:18 Dose: 0.5 mg Benzonatate (Benzonatate 100 Mg Capsule) 100 mg PO TIDP PRN PRN Reason: Congestion Last Admin: 08/13/22 01:12 Dose: 100 mg Ceftriaxone Sodium (Ceftriaxone 1 Gm Vial) 1 gm IV Q24H [facility] Last Admin: 08/12/22 08:26 Dose: 1 gm Cyclobenzaprine HCl (Cyclobenzaprine 10 Mg Tablet) 10 mg PO TIDP PRN PRN Reason: Pain Last Admin: 08/12/22 22:18 Dose: 10 mg Docusate Sodium (Docusate Sodium 100 Mg Capsule) 100 mg PO BID [facility] Last Admin: 08/12/22 22:20 Dose: 100 mg Enoxaparin Sodium (Enoxaparin 40 Mg/0.4 Ml Syringe) 40 mg SQ DAILY [facility] Last Admin: 08/12/22 08:26 Dose: 40 mg Potassium [place] 40 meq/ (Dextrose) 520 mls @ 130 mls/hr IV UD PRN PRN Reason: Potassium < 3 Magnesium Sulfate (Magnesium Sulfate) 2 gm in 50 mls @ 50 mls/hr IV UD PRN PRN Reason: Magnesium </= 1.6 Azithromycin 500 mg/ Dextrose 250 mls @ 250 mls/hr IV Q24H [facility]; Protocol Stop: 08/13/22 10:59 Last Infusion: 08/12/22 13:35 Dose: Infused Levothyroxine Sodium (Levothyroxine Sodium 112 Mcg Tablet) 112 mcg PO QAMAC [facility] Last Admin: 08/12/22 08:25 Dose: 112 mcg Methylprednisolone Sodium Succinate (Methylprednisolone Sod Succ 125 Mg/2 Ml Vial) 62.5 mg IV Q8 [facility] Last Admin: 08/13/22 05:20 Dose: 62.5 mg Montelukast Sodium (Montelukast 10 Mg Tablet) 10 mg PO [facility] Last Admin: 08/12/22 20:38 Dose: 10 mg Ondansetron HCl (Ondansetron 4 Mg/2 Ml Vial) 4 mg IV Q4HP PRN PRN Reason: Nausea And Vomiting Roflumilast [ Daliresp] 500 Mcg Tablet 1 dose PO QAM [facility] Last Admin: 08/12/22 10:42 Dose: Not Given Fluticasone Furoate [Arnuity Ellipta] 200 Mcg Inhaler 1 dose INH DAILY [facility] Fluticasone/Umeclidinium/Vilanterol [Trelegy] 100/62.5/25 Mcg Inhaler 1 dose INH DAILY [facility] Polyethylene Glycol (Polyethylene Glycol 3350 17 Gm Packet) 17 gm PO DAILYP PRN PRN Reason: Constipation Potassium Ch[place]ide (Potassium Chlor[place] 20 Meq Tablet) 40 meq PO UD PRN PRN Reason: Potssium is 3-3.5 Potassium Chloride (Potassium Ch[place] 20 Meq Tablet) 40 meq PO UD PRN PRN Reason: Potassium < 3 Senna (Sennosides 1 Tablet) 2 tab PO DAILYP PRN PRN Reason: Constipation Sertraline HCl (Sertraline 100 Mg Tablet) 100 mg PO QDAY [facility] Last Admin: 08/12/22 08:25 Dose: 100 mg Simvastatin (Simvastatin 20 Mg Tablet) 20 mg PO [facility] Last Admin: 08/12/22 20:38 Dose: 20 mg Sodium Chloride (0.9 % Sodium Chloride 10 Ml Syringe) 10 ml IV Q8 [facility] Last Admin: 08/13/22 05:21 Dose: 10 ml Tizanidine HCl (Tizanidine 4 Mg Tablet) 2 mg PO Q8HP PRN PRN Reason: Spasms A/P Narrative A/P Narrative: A: *AECOPD(not on home O2): *PNA: suspect viral from parainfluenza virus vs bacterial -covid/flu neg *Sepsis: -febrile/tachypnea/tachycardia slowly improving *Metabolic acidosis: *Depression/anxiety: Continue home medications *Hypothyroidism: *Anemia, likely chronic: monitor P: -Corticosteroids (wean) -manoj/prn Nebs, RT, budesonide -IS/Acapella -monitor o2, prn oxygen therapy -abx, pending BC/SC -Follow-up acid-base status, renal fxn -crp -f/u CT 3-6mos for BARRON infiltrates -PT/OT -ppx: Lovenox Time Spent With Patient Time: Total time spent is greater than 50% in coordination of care (as documented) at patient's floor/unit and/or counseling patient: Subsequent: Total time with patient: 50 - 65 Minutes QUALITY Stroke Symptom Onset Unknown: No VTE Deep Vein Thrombosis/Pulmonary Embolism Present on Admission: No
[2022-08-13 08:01] LABS: Blood Urea Nitrogen 13 mg/dL (8-23); Calcium 8.9 mg/dL (8.6-10.4); Carbon Dioxide 20 mmol/L (22-30); Chloride 99 mmol/L (96-108); Glomerular Filtration Rate 96; Glucose 160 mg/dL (70-105)
[2022-08-13] MEDS: LEVOTHYROXINE SODIUM 112 MCG TABLET PO SCH (08:12)
[2022-08-13] MEDS: SERTRALINE 100 MG TABLET PO SCH (08:54)
[2022-08-13] MEDS: cefTRIAXone 1 GM VIAL IV SCH (08:54)
[2022-08-13] MEDS: ENOXAPARIN 40 MG/0.4 ML SYRINGE SQ SCH (08:54)
[2022-08-13] MEDS: VILANTEROL INH SCH (08:55)
[2022-08-13] MEDS: UMECLIDINIUM INH SCH (08:55)
[2022-08-13] MEDS: DOCUSATE SODIUM 100 MG CAPSULE PO SCH ×2 (08:55→21:23)
[2022-08-13] MEDS: FLUTICASONE INH SCH (08:55)
[2022-08-13] MEDS ORDERED: LORazepam 2 MG/ML VIAL IV PRN (09:30)
[2022-08-13] MEDS: guaiFENesin/CODEINE 10 ML UDC PO PRN (10:51)
[2022-08-13] MEDS: AZITHROMYCIN 500 MG in DEXTROSE 5% IN WATER 250 ML IV SCH (10:51)
[2022-08-13] MEDS: methylPREDNISolone SOD SUCC 40 MG/ML VIAL IV SCH ×2 (10:51→21:21)
[2022-08-13] MEDS: IPRATROPIUM/ALBUTEROL 3 ML AMPUL.NEB NEB PRN ×2 (11:08→23:01)
--- NOTE | 2022-08-13 11:40 | Discharge Summary ---
Discharge Provider Provider IMPORTANT FOLLOW-UP INFORMATION FOR PCP: P: -Prednisone taper -abx -f/u CT 3-6mos for BARRON infiltrates -Follow-up with pulmonology outpatient Patient information: Note initiated : 08/13/22 at 11:38 am Service Date, if different from initiated Date: [] Patient: Venessa Hercules 66 y/o F admitted on 08/11/22 for Shortness of breath. Chief Complaint: [] Date of admission: 08/11/22 21:18 Discharge date: 08/14/22 Primary care physician: Blaire Marquez Consults: 08/11/22 Consult to Physician [CONS] Stat Comment: Consulting Provider: Anil Asif Reason For Exam: Physician to Consult COURSE Hospital Course Hospital course: History of present illness: Ms. Hercules is a 66 year old F Presents today with shortness of breath and productive cough. And feeling wheezy. Patient states about a month or so ago she was little more short of breath and saw her electrician maintenance Dr. Beauchamp. She started to feel little better but then when she went down to [place] to visit family she seemed to be getting worse again. And then on the way back she continued to worsen. She was around a sister who had a cold as well. It was so severe today that she came into the hospital. Primarily shortness of breath is what brought her in. She got back from [place] yesterday. As stated before she does feel really wheezy. She did have some nausea. She does have a cough productive of thick white sputum with some yellowish hue to it. In the ED she was febrile tachypneic and tachycardic. Lactate was okay. CT of the chest showed left upper lobe pneumonia. Bronchitis. No PE. Patient was given DuoNeb treatments and eventually can continue his heart treatment with some improvement during the course but then she continues to feel short of breath. Patient is started on antibiotics. Patient has not had the flu or the COVID-vaccine. 4/3 Feeling a little better. Still quite short of breath with any activity. Coughing. Headache. 4/4 Still quite symptomatic with dyspnea. Maintaining oxygenation well. Has productive cough that hurts her chest when she coughs. Metabolic acidosis a little better but still present. CRP mildly improved. 4/5 Continues on room air. No overnight event or new complaints. D/c with prednisone taper and antibiotics and referral to see pulmonology. Also prescribed Xopenex as she is unable to get any supply of albuterol. A: *AECOPD(not on home O2): *PNA: suspect viral fromparainfluenzavirus vs bacterial -covid/flu neg *Sepsis: -febrile/tachypnea/tachycardia slowly improving *Metabolic acidosis: *Depression/anxiety: Continue home medications *Hypothyroidism: *Anemia, likely chronic: monitor P: -Prednisone taper -abx -f/u CT 3-6mos for BARRON infiltrates -Follow-up with pulmonology outpatient Discharge diagnosis: COPD parainfluenza with pneumonia sepsis Secondary discharge diagnosis: Metabolic acidosis depression anxiety hypothyroidism chronic anemia Time Spent with Patient Time attestation: Total time spent providing and/or coordinating discharge services: Time spent: Greater than 30 minutes EXAM Constitutional Vitals: Temp Pulse Resp BP Pulse Ox O2 Del Method 98.2 F 107 H 32 H 105/76 94 Room Air 08/13/22 08:00 08/13/22 11:09 08/13/22 11:09 08/13/22 08:00 08/13/22 11:09 08/13/22 11:09 Discharge Data Data Completed and Pending Labs on day of discharge: Labs from last 24 hours 08/13/22 05:44 Sodium 134 Potassium 3.8 Chloride 99 Carbon Dioxide 20 L Anion Gap 15.0 BUN 13 Creatinine 0.6 GFR Calculation 96 Glucose 160 H Calcium 8.9 C-Reactive Protein 1.80 H Preliminary micro results at discharge 08/11/22 16:02 Blood Culture - Preliminary Blood 08/11/22 15:48 Blood Culture - Preliminary Blood 08/12/22 04:43 Gram Stain - Preliminary Sputum source - Expectorated Discharge Plan Patient/Caregiver Discharge Instructions Activity Restrictions/Additional Instructions: Referral to see fabrication department supervisor in 3 to 14 days for COPD. Prescriptions: New ipratropium bromide 0.02 % solution 2.5 ml inhalation Q6H PRN (Reason: shortness of breath or wheezing) Qty: 150 0RF levalbuterol HCl [Xopenex] 1.25 mg/3 mL solution for nebulization 1.25 mg inhalation Q6H PRN (Reason: shortness of breath or wheezing) Qty: 90 0RF Rx Instructions: for up to 3 doses prednisone 10 mg tablet 40 mg PO QDAY Qty: 1 0RF Rx Instructions: Take 40mg once daily for 2 days then 20mg daily for 2 days then 10mg daily x2 days then 5mg x2 days and stop cefdinir 300 mg capsule 300 mg PO BID Qty: 5 0RF benzonatate 200 mg capsule 200 mg PO TID PRN (Reason: cough) Qty: 20 0RF Continued cyclobenzaprine 10 MG tablet 10 mg PO TIDP PRN (Reason: Pain) alprazolam 0.5 MG tablet 0.5 mg PO BIDP PRN (Reason: Anxiety) Rx Instructions: take 1-2 tablets po as needed montelukast [Singulair] 10 MG tablet 10 mg PO DAILY levothyroxine 112 mcg tablet 112 mcg PO QDAY Arnuity Ellipta 200 mcg/actuation Blister With Device 1 inh INHALATION QDAY sertraline 100 mg tablet 100 mg PO QDAY Trelegy Ellipta 100-62.5-25 mcg Blister With Device 1 inh INHALATION QDAY benzonatate 100 mg capsule 100 mg PO TIDP PRN (Reason: Congestion) roflumilast [Daliresp] 500 mcg tablet 500 mcg PO QAM simvastatin 20 mg tablet 20 mg PO QDAY tizanidine 2 mg Tablet 2 mg PO Q8H PRN (Reason: Spasms) triamcinolone acetonide 0.1 % Cream 1 applic TOPICAL PRN PRN (Reason: Allergic Symptoms) Rx Instructions: for hands Mucinex 1,200 mg Tablet Extended Release 12hr 1,200 mg PO BID No Action albuterol sulfate [Ventolin HFA] 1 PUFF HFA aerosol inhaler 2 puff INH Q4-6HP PRN (Reason: Wheezing) albuterol sulfate 2.5 mg /3 mL (0.083 %) solution for nebulization 2.5 mg continuous nebulization Q4-6HP PRN (Reason: Wheezing) ipratropium bromide 0.02 % solution 0.5 mg continuous nebulization Q6-8HP PRN (Reason: Wheezing) Follow Up Plan Follow up with: Blaire Marquez MD [Primary Care Provider] - Patient Disposition: Home, Self-Care Prognosis: Fair Overall status at discharge: patient is progressing back to baseline Discharge Orders: Discharge Order (Routine); Ordered 08/14/22 Ordered By: Anil Asif [facility] VTE Deep Vein Thrombosis/Pulmonary Embolism Present on Admission: No
[2022-08-13] MEDS: ALPRAZolam 0.5 MG TABLET PO PRN (12:20)
[2022-08-13] MEDS: SIMVASTATIN 20 MG TABLET PO SCH (21:22)
[2022-08-13] MEDS: MONTELUKAST 10 MG TABLET PO SCH (21:23)
[2022-08-14] MEDS: IPRATROPIUM/ALBUTEROL 3 ML AMPUL.NEB NEB SCH ×3 (00:45→12:49)
[2022-08-14] MEDS: ALPRAZolam 0.5 MG TABLET PO PRN (01:09)
[2022-08-14] MEDS: CYCLOBENZAPRINE 10 MG TABLET PO PRN (01:10)
[2022-08-14] MEDS: guaiFENesin/CODEINE 10 ML UDC PO PRN ×2 (02:23→07:46)
[2022-08-14] MEDS: ACETAMINOPHEN 325 MG TABLET PO PRN (04:48)
[2022-08-14] MEDS: 0.9 % SODIUM CHLORIDE 10 ML SYRINGE IV SCH (05:35)
[2022-08-14] MEDS: LEVOTHYROXINE SODIUM 112 MCG TABLET PO SCH (07:46)
[2022-08-14] MEDS: DOCUSATE SODIUM 100 MG CAPSULE PO SCH (10:59)
[2022-08-14] MEDS: ENOXAPARIN 40 MG/0.4 ML SYRINGE SQ SCH (10:59)
[2022-08-14] MEDS: FLUTICASONE INH SCH (11:00)
[2022-08-14] MEDS: VILANTEROL INH SCH (11:00)
[2022-08-14] MEDS: SERTRALINE 100 MG TABLET PO SCH (11:00)
[2022-08-14] MEDS: UMECLIDINIUM INH SCH (11:00)
[2022-08-14] MEDS: methylPREDNISolone SOD SUCC 40 MG/ML VIAL IV SCH (11:00)
[2022-08-14] MEDS: cefTRIAXone 1 GM VIAL IV SCH (11:06)
== END 2022-08-14 14:00 | disposition home or self-care (01) | DRG 871 ==
LOC: ED 15:30 → ICU 21:18
PROVIDERS: ADMIT Internal Medicine; ATTEND Internal Medicine